=== PATIENT | female | born 1950 | race Asian ===

== ENCOUNTER 2018-10-27 11:08 | Observation (INO) | payer OTHER ==
[2018-10-27] MEDS ORDERED: NS 1,000 ML IV ONE (11:30)
[2018-10-27] MEDS ORDERED: ceFAZolin 2 GM/DEXTROSE 100 ML IV ONE (11:31)
--- NOTE | 2018-10-27 11:32 | EDPHY ---
H & P Time Seen by Provider: 10/27/18 11:15 HPI/ROS: CHIEF COMPLAINT: Skin rash HISTORY OF PRESENT ILLNESS: Facial redness on the cheek and ears right greater than left since October 18. She has been using a cream and Benadryl which she purchased at at [employer] but it is not better. Red, initially was itchy now is a little bit painful. Not associated with fever or chills. No respiratory symptoms of cough or shortness of breath. No other skin rash. Symptoms moderate to severe. No visual decrease or eye pain. REVIEW OF SYSTEMS: Eye: no change in vision ENT: no sore throat Cardiac: no chest pain or syncope Pulmonary: no cough or SOB Abdomen: no vomiting, diarrhea, abdominal pain Musculoskeletal: no back pain Skin: HPI Neuro: no headache Constitutional: no fever : no urinary symptoms A comprehensive 10 point review of systems is otherwise negative aside from elements mentioned in the history of present illness. 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 Eyes: No scleral icterus. Pupils equal reactive extraocular motion intact. ENT, Mouth: Normal mucous membranes. No Koplik's spots. Eyelid and facial swelling but no stridor or drooling. Respiratory: Normal respiratory effort, breath sounds equal, lungs are clear to auscultation. Cardiovascular: Regular rate and rhythm. Gastrointestinal: Abdomen is soft and non tender. Neurological: Alert, face symmetric, normal motor and sensory in extremities. Skin: Red and swollen area on the right cheek greater than the left with some scaling. Both ears are swollen with erythema and some honey crusting drainage in both sides. No vesicles. No fluctuance. No rash on the hands or extremities. Musculoskeletal: No peripheral edema. Normal range of motion of the neck. Psychiatric: Not agitated. Emergency Department course/MDM: Patient presents with worsening facial rash for the last week, has weeping and some crusting and drainage on both ears and right cheek greater than left erythema with a little bit of scaling that is tender to palpation and warm to the touch. Will treat for erysipelas with IV Ancef, hospitalist admission. I do not think it is likely this patient has measles or other airborne transmission illness. Discussed with Meagan Ribeiro at 11:38 a.m.. 1156: Tomas Jalloh from ID here. Constitutional: Initial Vital Signs Temperature (C) 36.8 C 10/27/18 11:16 Heart Rate 94 10/27/18 11:16 Respiratory Rate 16 10/27/18 11:16 Blood Pressure 157/89 H 10/27/18 11:16 O2 Sat (%) 93 10/27/18 11:16 O2 Delivery Mode Room Air Allergies/Adverse Reactions: No Known Allergies Allergy (Verified 10/27/18 12:02) Home Medications: Medication Instructions Recorded Acetaminophen [Tylenol 325mg (*)] 325 mg PO Q6 PRN 10/27/18 Naphazoline/Zinc Sulf/Glycerin 1 drop EACHEYE DAILY PRN 10/27/18 [Clear Eyes Itchy Eye Rlf Drops] diphenhydrAMINE [Benadryl Cream] 1 luz TP DAILY PRN 10/27/18 Medical Decision Making - Data Points Medications Given: Discontinued Medications Cefazolin Sodium/Dextrose (Ancef) 100 mls @ 200 mls/hr IV EDNOW ONE PRN Reason: Protocol Stop: 10/27/18 12:00 Last Admin: 10/27/18 11:56 Dose: 100 mls Sodium Chloride (Ns) 1,000 mls @ 0 mls/hr IV EDNOW ONE; Wide Open PRN Reason: Protocol Stop: 10/27/18 11:31 Last Admin: 10/27/18 11:57 Dose: 1,000 mls Departure - Departure Disposition: [facility] Inpatient Acute Clinical Impression: Erysipelas Condition: Good
[2018-10-27] MEDS ORDERED: ACETAMINOPHEN 325 MG TAB PO PRN (11:48)
[2018-10-27] MEDS ORDERED: ONDANSETRON 4 MG/2 ML VIAL IVP PRN (11:48)
[2018-10-27] MEDS ORDERED: ONDANSETRON DISINTEGRATING 4 MG TAB PO PRN (11:48)
[2018-10-27 11:52] LABS: PLATELET COUNT 244 10^3/uL (150-400)
--- NOTE | 2018-10-27 13:46 | GCON ---
[f rep st] CONSULTATION DATE OF CONSULTATION: 10/27/2018 REQUESTING PROVIDER: Mo Bella, nurse practitioner. REASON FOR CONSULTATION: Facial rash/facial cellulitis. HISTORY: Patient is a 68-year-old [place] female, living in the [place] since the , who I am asked to see in consultation for facial rash with concern for facial cellulitis. The patient w as referred to the emergency department earlier today when she was with her mom at an Ophthalmology a ppointment for her mother and concern was raised by the nodulizer that the patient's rash might be compatible with measles. The patient was subsequently evaluated in the emergency department base d on this concern. The patient describes having a facial rash which has been painful and pruritic si ncOctober 18. She first noticed this when she [place] the [place]. She bree cribes being treated with a topical cream, which she cannot further characterize and oral Benadryl. She does not feel that either of these have been helpful. She complains of "water leaking" from behi nd her ears. She has not experienced fevers, chills or night sweats. She has not had eye pain or ey e redness. She has had swelling extend to around the eye. She has not noted any other skin rash. N o changes in visual acuity. She has not had any sores in her mouth. She denies cough or shortness o f breath. She has not experienced intraoral lesions. In the emergency department, she was given cef azolin with concern for facial cellulitis. The patient does not note any similar symptoms in the pas t. Given the above findings, I am now asked to assist in the patient's ongoing management. PAST MEDICAL HISTORY: Unremarkable. PAST SURGICAL HISTORY: Unremarkable. CURRENT MEDICATIONS: Oral Benadryl, topical cream applied to the face; denies any other topical toshia dies such as use of tea tree oil. ALLERGIES: No known drug allergies. SOCIAL HISTORY: The patient denies tobacco, alcohol or drug use. There is a pet cat at home. Immig rated to [facility] in 1983. Unable to fully delineate prior vaccination history. FAMILY HISTORY: Mother with diabetes mellitus. REVIEW OF SYSTEMS: Outside that noted in the HPI, the remainder of 10-system review is unremarkable. PHYSICAL EXAMINATION: VITAL SIGNS: Temperature 37, heart rate 108, respiratory rate 18, blood press ure 166/86, oxygen saturation 95% on room air. GENERAL: Patient is well nourished, well developed, in no acute distress. She appears nontoxic. HEENT: There is a scaly, erythematous, thickened rash over both cheeks, right greater than left, with extension to the ear and behind the ears bilaterally; there is extension to the hairline bilaterally. There is extensive weeping of clear fluid at the gonzalez irline and behind the ears as well as a smaller area overlying the right cheek. There is no purulenc e. There is mild periorbital edema bilaterally. The extraocular muscles are intact. There is no co njunctival injection, scleral icterus or conjunctival petechiae. Oropharynx shows no lesions and no Koplik spots are noted. Dentures are present on the upper and lower bridge, of which both were remov ed for examination. No nasal discharge or pustulosis. NECK: Supple without palpable lymphadenopath y or thyromegaly. Similar thickened, erythematous, scaly rash present, but significantly less promin ent over the anterior neck. CHEST: Clear to auscultation bilaterally without adventitious sounds. CARDIOVASCULAR: Tachycardic without murmurs, gallops, or rubs. ABDOMEN: Soft, nontender, nondisten ded. There is no palpable organomegaly. Bowel sounds are present. MUSCULOSKELETAL: No cyanosis, c lubbing, or edema. SKIN: See HEENT exam; there is also slightly erythematous, thickened macular dorina h over the abdomen below the breast folds and in the mid back. There is no rash over the extremities or lower abdominal wall or back. No stigmata of endocarditis. NEUROLOGIC: Patient is alert and in teracts appropriately with the examiner. Cranial nerves 2-12 are grossly intact. Sensation is gross ly intact. Muscle tone and bulk are normal. LYMPHATICS: No cervical or supraclavicular nodes. LABORATORY DATA: White blood cell count 6.8, hematocrit 43.5, platelets 244, neutrophils 47%, lympho cytes 29%, eosinophils 16%; absolute eosinophil count 1090. Serum creatinine is 0.7. IMPRESSION: Facial rash: The appearance of the rash is most consistent with an eczematous process w ith the thickened, scaly nature and weeping being present. She also has presence of eosinophilia on her peripheral blood smear. No discrete inciting factors elucidated by history. I think there is a low likelihood that there is any super infection present or element of cellulitis. Clinical presenta tion and appearance of rash not suggestive of measles. RECOMMENDATIONS: 1. Observe off antibiotics. 2. Will review with Dermatology regarding potential use of more potent topical steroids (difficulty with facial involvement) versus oral steroids to assist in resolution of symptoms. 3. Follow clinical response to above measures. 4. Will revisit history over time to determine if there are any other precipitating exposures that m ay have led to eczematous reaction. There are no other findings such as fungal rash as could be pres ent with an ID reaction. 5. Thank you for this consultation. We will continue to follow the patient with you. /[id number]/MODL
[2018-10-27] MEDS: CETIRIZINE 10 MG TAB PO SCH (15:05)
[2018-10-27] MEDS: predniSONE 20 MG TAB PO SCH (15:05)
--- NOTE | 2018-10-27 15:42 | PDGENHP ---
History and Physical - Chief Complaint Facial Swelling - History of Present Illness Mia Yee is a 68 yo F with no significant PMHx who presents to [facility] for facial swelling and rash. She reports that swelling and rash started last week on Thursday with associated itching. She describes taking oral and topical Benadryl for itching with minimal improvement. She was at an Opthamology appointment with her mother this morning when the opthamologist recommended she be seen in ED for further evaluation. She denies any hx of facial swelling or rashes. She denies any vision changes, f/c, other areas of rash, SOB, cough, chest pain , edema. History Information - Allergies/Home Medication List Allergies/Adverse Reactions: No Known Allergies Allergy (Verified 10/27/18 12:02) Home Medications: Acetaminophen [Tylenol 325mg (*)] 325 mg PO Q6 PRN 10/27/18 [Last Taken Unknown] Naphazoline/Zinc Sulf/Glycerin [Clear Eyes Itchy Eye Rlf Drops] 1 drop EACHEYE DAILY PRN 10/27/18 [Last Taken Unknown] diphenhydrAMINE [Benadryl Cream] 1 luz TP DAILY PRN 10/27/18 [Last Taken Unknown ] I have personally reviewed and updated: family history, medical history, social history, surgical history - Past Medical History no pertinent PMH - Surgical History Reports: no pertinent surgical hx - Family History Positive for: non-pertinent - Social History Smoking Status: Never smoked Review of Systems Review of Systems: ROS: 10pt was reviewed & negative except for what was stated in HPI & below Physical Exam Physical Exam: Temp Pulse Resp BP Pulse Ox 37.0 C 108 H 18 166/86 H 95 10/27/18 12:49 10/27/18 12:49 10/27/18 12:49 10/27/18 12:49 10/27/18 12:49 Constitutional: no apparent distress Eyes: PERRL Ears, Nose, Mouth, Throat: other (Swelling with erythema over both cheeks R>L) Cardiovascular: regular rate and rhythym Respiratory: no respiratory distress Gastrointestinal: soft, non-tender abdomen Skin: rash (Scaly, erythemaous rash, weeping clear fluid, mild periorbital edema b/l) Musculoskeletal: full muscle strength Neurologic: AAOx3 Psychiatric: interacting appropriately Lymph, Heme, Immunologic: No lymphadenopathy, No lymphangitic streaking, No ecchymoses, No petechiae Lab Data & Imaging Review 10/27/18 11:40 10/27/18 11:40 WBC 6.78 10^3/uL (3.80-9.50) 10/27/18 11:40 RBC 4.65 10^6/uL (4.18-5.33) 10/27/18 11:40 Hgb 14.4 g/dL (12.6-16.3) 10/27/18 11:40 Hct 43.5 % (38.0-47.0) 10/27/18 11:40 MCV 93.5 fL (81.5-99.8) 10/27/18 11:40 MCH 31.0 pg (27.9-34.1) 10/27/18 11:40 MCHC 33.1 g/dL (32.4-36.7) 10/27/18 11:40 RDW 12.3 % (11.5-15.2) 10/27/18 11:40 Plt Count 244 10^3/uL (150-400) 10/27/18 11:40 MPV 8.8 fL (8.7-11.7) 10/27/18 11:40 Neut % (Auto) 46.9 % (39.3-74.2) 10/27/18 11:40 Lymph % (Auto) 28.5 % (15.0-45.0) 10/27/18 11:40 Kidder % (Auto) 7.8 % (4.5-13.0) 10/27/18 11:40 Eos % (Auto) 16.1 % (0.6-7.6) H 10/27/18 11:40 Baso % (Auto) 0.4 % (0.3-1.7) 10/27/18 11:40 Nucleat RBC Rel Count 0.0 % (0.0-0.2) 10/27/18 11:40 Absolute Neuts (auto) 3.18 10^3/uL (1.70-6.50) 10/27/18 11:40 Absolute Lymphs (auto) 1.93 10^3/uL (1.00-3.00) 10/27/18 11:40 Absolute Monos (auto) 0.53 10^3/uL (0.30-0.80) 10/27/18 11:40 Absolute Eos (auto) 1.09 10^3/uL (0.03-0.40) H 10/27/18 11:40 Absolute Basos (auto) 0.03 10^3/uL (0.02-0.10) 10/27/18 11:40 Absolute Nucleated RBC 0.00 10^3/uL (0-0.01) 10/27/18 11:40 Immature Gran % 0.3 % (0.0-1.1) 10/27/18 11:40 Immature Gran # 0.02 10^3/uL (0.00-0.10) 10/27/18 11:40 Sodium 138 mEq/L (135-145) 10/27/18 11:40 Potassium 4.1 mEq/L (3.5-5.2) 10/27/18 11:40 Chloride 104 mEq/L (97-110) 10/27/18 11:40 Carbon Dioxide 25 mEq/l (22-31) 10/27/18 11:40 Anion Gap 9 mEq/L (6-14) 10/27/18 11:40 BUN 20 mg/dL (7-23) 10/27/18 11:40 Creatinine 0.7 mg/dL (0.6-1.0) 10/27/18 11:40 Estimated GFR > 60 10/27/18 11:40 Glucose 87 mg/dL (70-100) 10/27/18 11:40 Calcium 9.1 mg/dL (8.5-10.4) 10/27/18 11:40 Assessment & Plan Assessment: 1. Facial Rash - Appears consistent with eczema given skin thickening and weeping - Presence of eosinophilia on CBC, no other abnormalities on lab work - ID consulted who recommends to observe off of abx, s/p Ancef in ED - ID also contacted Dermatology who recommends PO steroids (40 mg PO Prednisone) , Topical Steroid (Fluocinolone 0.025% BID), and oral antihistamine (Cetirizine 10 mg qd) - Follow response to above interventions FEN: IVF PRN, Regular DVT PPx: Low risk Code: FULL Dispo: Admit to Observation
[2018-10-27] MEDS ORDERED: ZINC SULF EACHEYE PRN (15:50)
[2018-10-27] MEDS ORDERED: GLYCERIN EACHEYE PRN (15:50)
[2018-10-27] MEDS ORDERED: NAPHAZOLINE EACHEYE PRN (15:50)
[2018-10-27] MEDS: FLUOCINOLONE 0.025% TP SCH ×2 (16:06→22:04)
[2018-10-27] MEDS ORDERED: hydrALAZINE 20 MG/ML VIAL IVP PRN (17:26)
[2018-10-28] MEDS ORDERED: diphenhydrAMINE 25 MG CAP PO PRN (03:59)
[2018-10-28 08:23] VITALS: BP 146/78
[2018-10-28] MEDS ORDERED: ENOXAPARIN 40 MG/0.4 ML SYR SC SCH (09:00)
[2018-10-28] MEDS: CETIRIZINE 10 MG TAB PO SCH (09:12)
[2018-10-28] MEDS: predniSONE 20 MG TAB PO SCH (09:12)
[2018-10-28] MEDS: FLUOCINOLONE 0.025% TP SCH (09:21)
--- NOTE | 2018-10-28 14:24 | PDDCSUM ---
Discharge Summary Discharge Summary: Date of Admission: 10/27/2018 Date of Discharge: 10/28/2018 Consults: ID Procedures: N/A Followup: PCP, Dermatology Hospital Course Problem List: 1. Facial Rash - Appears consistent with eczema given skin thickening and weeping - Presence of eosinophilia on CBC, no other abnormalities on lab work - ID consulted who recommends to observe off of abx, s/p Ancef in ED - ID also contacted Dermatology who recommends PO steroids (40 mg PO Prednisone) , Topical Steroid (Fluocinolone 0.025% BID), and oral antihistamine (Cetirizine 10 mg qd) - Clinical improvement on morning of discharge with decreased swelling, erythema - Patient to f/u with Dermatology, referral placed for [facility], Dr. Lewis Time spent on discharge was >35 minutes with >50% of time spent on patient education and counseling.
== END 2018-10-28 12:59 | disposition home or self-care (01) ==
LOC: INTOOBSV 11:38 → F3E 12:39
PROVIDERS: ADMIT Internal Medicine; ATTEND Internal Medicine
DX: A46 Erysipelas (principal)
CPT/HCPCS: 96372; 96374; 99285; G0378; J0690; J1650; J7512